=== PATIENT | male | born 1990 | race Caucasian/White ===

== ENCOUNTER 2017-09-10 17:31 | Emergency (ER) | payer SELFPAY ==
[~2017-09-10] VITALS: Ht 177.8 cm; Wt 100.0 kg
[2017-09-10] MEDS ORDERED: NORCO1 TA1 PO (18:39)
[2017-09-10 19:03] VITALS: BP 121/65
== END 2017-09-10 19:17 | disposition home or self-care (01) | DRG 563 ==
LOC: ED 17:31
PROC: 2W3QX1Z Immobilization of Right Lower Leg using Splint (ICD-10-PCS; principal; 2017-09-10)
DX: S82.491A Other fracture of shaft of right fibula, initial encounter for closed fracture (principal); V86.59XA Driver of other special all-terrain or other off-road motor vehicle injured in nontraffic accident, initial encounter